=== PATIENT | female | born 1955 | race Caucasian/White ===

== ENCOUNTER 2019-02-06 18:07 | Inpatient (IN) | payer OTHER, MEDICAID ==
[~2019-02-06] VITALS: Ht 149.9 cm; Wt 65.8 kg
[2019-02-06 18:07] VITALS: BP 124/60
--- NOTE | 2019-02-06 18:07 | NUR ---
ricardo from [facility] to bed
--- NOTE | 2019-02-06 18:07 | NUR ---
63/F biba from [facility] for abnormal labs, hgb 6.9, hct 22, +occult blood. Denies vomiting blood, obvious blood in stool or signs of bleeding. Pt awake and alert, skin normal color warm and dry, rr even and unlabored. hx cva (r sided weakness), cad with angioplasty, anemia, hld, dysphagia
[2019-02-06 19:10] LABS: BASOPHILS # (AUTO) 0.1 K/uL (0.00-0.22); BASOPHILS % (AUTO) 0.6 % (0.0-2.0); EOSINOPHILS # (AUTO) 0.2 K/uL (0-0.4); EOSINOPHILS % (AUTO) 1.8 % (0.0-4.0); HEMATOCRIT 22.7 % (36-48); HEMOGLOBIN 7.4 g/dL (12.0-16.0); LYMPHOCYTES # (AUTO) 1.3 K/uL (2.5-16.5); MEAN CORPUSCULAR HEMOGLOBIN 30 pg (27-31); MEAN CORPUSCULAR HGB CONC 33 g/dL (33-37); MEAN CORPUSCULAR VOLUME 91.3 fL (80-94); MONOCYTES # (AUTO) 0.9 K/uL (0.8-1.0); MONOCYTES % (AUTO) 9.5 % (1.7-9.3); NEUTROPHILS # (AUTO) 7.3 K/uL (1.8-7.7); NEUTROPHILS % (AUTO) 75.1 % (42.2-75.2); PLATELET COUNT (AUTO) 293 K/uL (140-450); RED BLOOD CELL COUNT(AUTO) 2.49 MIL/uL (4.20-5.40); RED CELL DISTRIBUTION WIDTH 14.5 % (11.6-13.7); WHITE BLOOD COUNT (AUTO) 9.8 K/uL (4.8-10.8)
--- NOTE | 2019-02-06 19:15 | NUR ---
RECEIVED BEDSIDE REPORT BY TAQUERIA WOLFE
--- NOTE | 2019-02-06 19:16 | NUR ---
PT LAYING IN BED. FAMILY AT BEDSIDE. EVEN UNLABORED BREATHING. WILL CONTINUE TO MONITOR
[2019-02-06 19:24] LABS: ANION GAP 14.1 (8-16); CARBON DIOXIDE 20.4 mmol/L (21-32); CREATININE 1.4 mg/dL (0.6-1.3); POTASSIUM 4.5 mmol/L (3.5-5.1)
[2019-02-06 19:33] LABS: ALBUMIN 2.4 g/dL (3.4-5.0); PROTHROMBIN TIME 9.6 secs (10.8-13.4); TOTAL BILIRUBIN 0.3 mg/dL (0.0-1.0)
[2019-02-06 20:11] LABS: APPEARANCE,URINE CLOUDY (CLEAR); BILIRUBIN,URINE NEGATIVE (NEGATIVE); BLOOD, URINE NEGATIVE (NEGATIVE); COLOR,URINE YELLOW (YELLOW); LEUKOCYTE ESTERASE ,URINE 1+ (NEGATIVE); NITRITE, URINE NEGATIVE (NEGATIVE); PH,URINE 5.5 (5.0-9.0); UGLUCOSE NEGATIVE (NEGATIVE)
[2019-02-06 20:20] LABS: RBC,URINE NONE SEEN /HPF (0-5)
[2019-02-06] MEDS ORDERED: NACL 0.9% 1,000 ML IV ONE (21:55)
[2019-02-06] MEDS ORDERED: cefTRIAXone 1,000 MG VIAL ONE (22:15)
--- NOTE | 2019-02-06 22:45 | NUR ---
PT LAYING IN BED. NO SIGNS OF DISTRESS NOTED. WILL CONTINUE TO MONITOR. FAMLY AT BEDSIDE
[2019-02-06] MEDS ORDERED: HYDROcodone/APAP 7.5/325 MG 1 TAB PO PRN (23:40)
[2019-02-06] MEDS ORDERED: ONDANSETRON 4 MG/2 ML VIAL IM/IVP PRN (23:40)
[2019-02-06] MEDS ORDERED: NACL 0.9% 1,000 ML IV SCH (23:40)
[2019-02-06] MEDS ORDERED: MORPHINE SULFATE 2 MG/ML SYR IVP PRN (23:40)
--- NOTE | 2019-02-06 23:52 | NUR ---
NS BOLUS FINISHED INFUSING. L HAND IV PATENT AND INTACT. NO SIGNS OF DISTRESS. WILL CONTINUE TO MONITOR.
[2019-02-07 00:09] LABS: BARBITURATE, URINE NEG. ng/ml (NEG <=200); BENZODIAZEPINE, URINE NEG. ng/mL (NEG <=200); CANNABINOID, URINE NEG. ng/mL (NEG <=50); COCAINE, URINE NEG. ng/mL (NEG <=300); OPIATE, URINE NEG. ng/mL (NEG <=2000); PHENCYCLIDINE SCREEN,URINE NEG. ng/mL (NEG <=25)
[2019-02-07 00:21] LABS: CHOL/HDL RATIO 2.3 (1-4.5); FREE T4 (FREE THYROXINE) 1.11 ng/dL (0.76-1.46); MAGNESIUM 1.8 mg/dL (1.8-2.4); PHOSPHORUS 4.1 mg/dL (2.5-4.9); THYROID STIMULATING HORMONE 1.82 uIU/mL (0.34-3.74)
--- NOTE | 2019-02-07 00:40 | NUR ---
Patient will be admitted to care of [facility]. Admited to ICU. Will go to BED 1. Belongings list completed. Report to ALYCIA SOLORIO.
--- NOTE | 2019-02-07 00:40 | NUR ---
ADMITTED THIS 63 YEAR OLD FEMALE PATIENT FROM ER PER MOLLY WITH THE ADMITTING DIAGNOSIS OF UTI AND ANEMIA, ACCOMPANIED BY ER NURSE AND PATIENT'S DAUGHTER. ASSISTED TO ICU 1; ADMISSION PROTOCOL/ASSESSMENT DONE. PATIENT IS AWAKE, ALERT AND ORIENTED ABLE TO MOVE LIMBS FREELY BUT WITH MILD RIGHT SIDED WEAKNESS NOTED. BREATHING EVEN AND UNLABORE, ON ROOM AIR. CARDIACSCOPE SHOWS ON SINUS RHYTHM HR89/MIN NO ARRHYTHMIAS SEEN. ABDOMEN SOFT, BOWEL SOUNDS HEARD AND CLAIMED BY THE PATIENT HERSELF, SHE HAS BLACKISH STOOL YESTERDAY. INCONTINENT OF URINE, USES DIAPER. SKIN IS INTACT.
[2019-02-07 01:00] VITALS: BP 145/70
[2019-02-07 04:00] VITALS: BP 115/64
[2019-02-07] MEDS ORDERED: SODIUM FERRIC GLUCONATE 125 MG in NACL 0.9% 100 ML IV SCH ×2 (04:55→08:00)
--- NOTE | 2019-02-07 05:20 | NUR ---
INCONTINENT OF URINE; DIAPER CHANGED.
[2019-02-07] MEDS: PANTOPRAZOLE 40 MG TABEC PO SCH (06:19)
[2019-02-07 06:25] LABS: BASOPHILS % (AUTO) 0.6 % (0.0-2.0); EOSINOPHILS # (AUTO) 0.3 K/uL (0-0.4); EOSINOPHILS % (AUTO) 3.1 % (0.0-4.0); HEMATOCRIT 21.3 % (36-48); HEMOGLOBIN 7.1 g/dL (12.0-16.0); LYMPHOCYTES # (AUTO) 1.4 K/uL (2.5-16.5); LYMPHOCYTES % (AUTO) 16.4 % (20.5-51.1); MEAN CORPUSCULAR HEMOGLOBIN 31 pg (27-31); MEAN CORPUSCULAR HGB CONC 33 g/dL (33-37); MEAN CORPUSCULAR VOLUME 91.9 fL (80-94); MONOCYTES # (AUTO) 0.9 K/uL (0.8-1.0); MONOCYTES % (AUTO) 10.6 % (1.7-9.3); NEUTROPHILS # (AUTO) 6.1 K/uL (1.8-7.7); NEUTROPHILS % (AUTO) 69.3 % (42.2-75.2); PLATELET COUNT (AUTO) 266 K/uL (140-450); RED BLOOD CELL COUNT(AUTO) 2.31 MIL/uL (4.20-5.40); RED CELL DISTRIBUTION WIDTH 14.7 % (11.6-13.7); WHITE BLOOD COUNT (AUTO) 8.8 K/uL (4.8-10.8)
--- NOTE | 2019-02-07 06:33 | NUR ---
TRANSFERRED TO TELE DEPARTMENT PER WHEELCHAIR IN ROOM 123A IN FAIR CONDITION.
[2019-02-07 06:55] LABS: ANION GAP 13.3 (8-16); CARBON DIOXIDE 21.4 mmol/L (21-32); CREATININE 1.3 mg/dL (0.6-1.3); POTASSIUM 3.7 mmol/L (3.5-5.1)
--- NOTE | 2019-02-07 07:20 | NUR ---
RECEIVED REPORT FROM RNSAUL, REGARDING THE PT, PT IS AWAKE AND LYING ON THE BED WITH SIDE RAILS UP AND CALL LIGHT WITHIN REACH, SAFETY AND FALL PRECAUTION INITIATED, PERIPHERAL LINES ON THE LEFT WRIST G. 22 WITH IVF NS INFUSING AT 60ML/HR AND ON THE RT ARM G.18 ON SALINE LOCK, PT DENIES PAIN AND NO SIGN OF DISTRESS NOTED, WILL MONITOR PT.
[2019-02-07 08:00] VITALS: BP 162/79
[2019-02-07] MEDS: CALCIUM CARB/VIT-D 500 MG/200 IU 1 TAB PO SCH ×2 (08:21→21:24)
[2019-02-07] MEDS: LACTOBACILLUS RHAMNOSUS GG 1 EACH CAP PO SCH (08:21)
[2019-02-07] MEDS: HYDROCHLOROTHIAZIDE 25 MG TAB PO SCH (08:21)
[2019-02-07] MEDS: hydrALAZINE 25 MG TAB PO SCH ×3 (08:22→17:27)
[2019-02-07] MEDS: ATORVASTATIN 80 MG TAB PO SCH (08:22)
[2019-02-07] MEDS: FERROUS SULFATE 325 MG TABEC PO SCH (08:22)
[2019-02-07] MEDS: DOCUSATE SODIUM 100 MG GELCAP PO SCH (08:23)
[2019-02-07] MEDS: NIFEdipine 90 MG TABER PO SCH (08:23)
[2019-02-07] MEDS: METOPROLOL SUCCINATE 50 MG TABER PO SCH (08:23)
--- NOTE | 2019-02-07 08:23 | NUR ---
PT IS AWAKE AND PARAMETER CHECKED, BP IS 163/75, PULSE IS 84, MANUALLY CHECKED. ORAL MEDICATIONS TAKEN, TOLERATED, NO SIGN OF DISTRESS NOTED AND WILL MONITOR PT.
--- NOTE | 2019-02-07 08:27 | NUR ---
PATIENT HAS BEEN SCREENED AND CATEGORIZED MODERATE NUTRITION RISK. PATIENT WILL BE SEEN WITHIN 3-5 DAYS OF ADMISSION. 02/09/19 02/11/[address]
[2019-02-07] MEDS ORDERED: hydrALAZINE 20 MG/ML VIAL IVP PRN (10:45)
[2019-02-07 12:00] VITALS: BP 150/73
--- NOTE | 2019-02-07 13:20 | NUR ---
PATIENT IS AWAKE, ALERT, AND VERBALLY RESPONSIVE. ABLE TO VERBALIZE NEEDS. CURRENTLY EATING LUNCH. DENIES SOB. DENIES PAIN. BP AT 146/71, HR 87, MEDICATIONS GIVEN ORDERED. TOLERATED WELL.
--- NOTE | 2019-02-07 15:43 | NUR ---
Ent Nurse Note: I called [facility] , admission coordinator was not available, I left voicemail message.
[2019-02-07 16:00] VITALS: BP 160/78
--- NOTE | 2019-02-07 16:43 | NUR ---
UTILIZED A SENIOR PROJECT CONTROLS SPECIALIST , CALIN #[id number] TO INFORM PT THAT A CONSENT NEEDS TO BE SIGNED FOR AN EGD, PT DENIES QUEWSTION FROM DR. GARCIA. PT SIGNED THE CONSENT AND DR. GARCIA MADE AWARE.
--- NOTE | 2019-02-07 16:51 | NUR ---
PT SIGNED CONSENT FOR EGD, WAS PLACED NPO EXCEPT MEDS, SIGN POSTED AND PT WAS MADE AWARE.
[2019-02-07] MEDS: SENNA 8.6 MG TAB PO SCH (17:00)
--- NOTE | 2019-02-07 17:27 | NUR ---
PT IS AWAKE AND DAUGHTER ON THE BEDSIDE, BP MEDICATION WAS GIVEN, WILL RE-ASSESS BP AND MONITOR PT.
[2019-02-07] MEDS: NACL 0.9% 1,000 ML IV SCH (17:45)
--- NOTE | 2019-02-07 19:30 | NUR ---
ENDORSED PT TO EMERGENCY DISPATCHER NURSEARIC, FOR CONTINUITY OF CARE.
[2019-02-07 20:10] VITALS: BP 142/69
--- NOTE | 2019-02-07 20:10 | NUR ---
SEEN PT AWAKE. FAMILY AT BEDSIDE. INITIAL ASSESSMENT DONE. VITAL SIGNS CHECKED. PT STATES SHE HAS A LITTLE BIT OF ABDOMINAL DISCOMFORT. INFORMED PT THAT SHE'S ON LAXATIVES FOR HER EGD IN AM. PT VERBALIZED UNDERSTANDING. IVF INFUSING WELL. CALL LIGHT W/IN REACH. SAFETY REINFORCED.
--- NOTE | 2019-02-07 21:20 | NUR ---
SEEN PT AWAKE. MEDICATIONS GIVEN ORDERED W/ TEACHINGS. PT VERBALIZED UNDERSTANDING. REMINDED PT THAT SHE'S NPO EXCEPT MEDICATIONS. PT AWARE. FAMILY AT BEDSIDE. WILL CONTINUE TO MONITOR.
[2019-02-07] MEDS: LACTULOSE 20 GM/30 ML UDC PO SCH (21:24)
--- NOTE | 2019-02-07 23:45 | NUR ---
SEEN PT AWAKE. VITAL SIGNS CHECKED. IVF INFUSING WELL. PT DENIES ANY DISCOMFORT. WILL CONTINUE TO MONITOR.
[2019-02-08] VITALS: BP 117/45
--- NOTE | 2019-02-08 00:30 | NUR ---
PT CALLED AND SAID SHE NEEDS TO BE CLEAN. PERICARE RENDERED. PT REPOSITIONED FOR COMFORT. INSTRUCTED TO CALL WHEN IN NEED. CALL LIGHT W/IN REACH. PT VERBALIZED UNDERSTANDING. WILL CONTINUE TO MONITOR.
--- NOTE | 2019-02-08 02:40 | NUR ---
SEEN PT AWAKE. PT DENIES ANY PAIN OR DISCOMFORT. IVF INFUSING WELL. CALL LIGHT W/IN REACH.
[2019-02-08 04:00] VITALS: BP 137/67
--- NOTE | 2019-02-08 04:00 | NUR ---
SEEN PT ASLEEP BUT EASILY AROUSABLE. VITAL SIGNS CHECKED. PT DENIES ANY PAIN. PT KEPT COMFORTABLE AND DENIES ANY NEEDS. SAFETY REINFORCED.
--- NOTE | 2019-02-08 06:00 | NUR ---
SEEN PT AWAKE ON BEDPAN. PT ONLY URINATED. PT DENIES BM THROUGHOUT THE SHIFT. PERICARE RENDERED. INFORMED PT THAT SHE'S NOT ON THE SCHEDULE YET BUT MD WILL JUST COME AND TAKE HER TO GI LAB. PT VERBALIZED UNDERSTANDING. PT DENIES ANY PAIN OR DISCOMFORT. IVF INFUSING WELL.
[2019-02-08] MEDS: PANTOPRAZOLE 40 MG TABEC PO SCH (06:07)
[2019-02-08 06:16] LABS: EOSINOPHILS # (AUTO) 0.1 K/uL (0-0.4); MEAN CORPUSCULAR VOLUME 91.5 fL (80-94); MONOCYTES # (AUTO) 0.7 K/uL (0.8-1.0); NEUTROPHILS # (AUTO) 5.6 K/uL (1.8-7.7)
[2019-02-08 06:33] LABS: CARBON DIOXIDE 19.2 mmol/L (21-32); CREATININE 1.2 mg/dL (0.6-1.3); POTASSIUM 4.2 mmol/L (3.5-5.1)
[2019-02-08 06:43] LABS: MAGNESIUM 1.5 mg/dL (1.8-2.4); PHOSPHORUS 4.5 mg/dL (2.5-4.9)
--- NOTE | 2019-02-08 06:44 | NUR ---
WILL ENDORSE CARE TO DAYSHIFT NURSE.
[2019-02-08 06:55] LABS: BASOPHILS % (AUTO) 0.6 % (0.0-2.0); EOSINOPHILS % (AUTO) 1.4 % (0.0-4.0); HEMATOCRIT 20.5 % (36-48); LYMPHOCYTES # (AUTO) 1.4 K/uL (2.5-16.5); LYMPHOCYTES % (AUTO) 17.6 % (20.5-51.1); MEAN CORPUSCULAR HEMOGLOBIN 30 pg (27-31); MEAN CORPUSCULAR HGB CONC 33 g/dL (33-37); MONOCYTES % (AUTO) 8.9 % (1.7-9.3); NEUTROPHILS % (AUTO) 71.5 % (42.2-75.2); PLATELET COUNT (AUTO) 272 K/uL (140-450); RED BLOOD CELL COUNT(AUTO) 2.24 MIL/uL (4.20-5.40); RED CELL DISTRIBUTION WIDTH 14.6 % (11.6-13.7); WHITE BLOOD COUNT (AUTO) 7.9 K/uL (4.8-10.8)
[2019-02-08 07:00] LABS: HEMOGLOBIN 6.7 g/dL (12.0-16.0)
--- NOTE | 2019-02-08 07:00 | NUR ---
FLORENTIN CHARGE NURSE RECEIVED H&H RESULT=6.8/20.3 AT 0705 [address] [place]. WILL AWAIT FOR CALL BACK. ENDORSE TO DAYSHIFT NURSE TO FOLLOW UP. AT 07, NO CALL BACK, PAGED AGAIN.
--- NOTE | 2019-02-08 07:20 | NUR ---
Received report from engineer rf deployment nurse. Pt sleeping in bed. No signs of distress noted. No C/O pain. Family be bedside. Call light in reach. [id number]
--- NOTE | 2019-02-08 07:45 | NUR ---
Called blood bank to f/u on PRBC. Per tech, blood is still unavailable at this time.
[2019-02-08 08:00] VITALS: BP 163/77
[2019-02-08] MEDS: CALCIUM CARB/VIT-D 500 MG/200 IU 1 TAB PO SCH ×2 (08:26→20:40)
[2019-02-08] MEDS: LACTOBACILLUS RHAMNOSUS GG 1 EACH CAP PO SCH (08:26)
[2019-02-08] MEDS: SENNA 8.6 MG TAB PO SCH ×3 (08:26→17:29)
[2019-02-08] MEDS: ATORVASTATIN 80 MG TAB PO SCH (08:27)
[2019-02-08] MEDS: METOPROLOL SUCCINATE 50 MG TABER PO SCH (08:27)
[2019-02-08] MEDS: HYDROCHLOROTHIAZIDE 25 MG TAB PO SCH (08:27)
[2019-02-08] MEDS: hydrALAZINE 25 MG TAB PO SCH ×3 (08:28→17:29)
[2019-02-08] MEDS: FERROUS SULFATE 325 MG TABEC PO SCH ×2 (08:28→17:29)
[2019-02-08] MEDS: DOCUSATE SODIUM 100 MG GELCAP PO SCH (08:28)
[2019-02-08] MEDS: LACTULOSE 20 GM/30 ML UDC PO SCH ×2 (08:28→20:40)
--- NOTE | 2019-02-08 08:45 | NUR ---
Blood transfusion consent obtained from [facility] via [facility] image scientistGonzalez # [id number]. Daughter by bedside. [id number]
[2019-02-08] MEDS: NIFEdipine 90 MG TABER PO SCH (09:46)
--- NOTE | 2019-02-08 10:00 | NUR ---
Pt in bed resting. No signs of distress. no c/O pain. Call light in reach.
[2019-02-08] MEDS: NACL 0.9% 1,000 ML IV SCH (10:10)
--- NOTE | 2019-02-08 10:49 | NUR ---
Manager Of Customer Billing Note: I was informed by both patient and patient's daughter Payal Julien, they would like to know if patient can fly to [place] upon discharge from [facility], instead of returning to [facility] . I explained to them I will relay their question to MD and request MD to speak with them. They verbalized understanding. I informed of my conversation with patient and Payal. Per , she will speak with them.
[2019-02-08 12:00] VITALS: BP 178/87
[2019-02-08] MEDS ORDERED: diphenhydrAMINE 50 MG/ML VIAL ONE (13:57)
[2019-02-08] MEDS ORDERED: MIDAZOLAM 2 MG/2 ML VIAL ONE (13:57)
[2019-02-08] MEDS ORDERED: fentaNYL 0.05 MG/ML VIAL ONE (13:57)
--- NOTE | 2019-02-08 14:00 | NUR ---
Pt left unit for EGD via hospital bed. Pt aoox4, no c/o discomfort, no signs of distress.
--- NOTE | 2019-02-08 14:40 | NUR ---
Pt came back from GI lab s/p EGD. Pt aoox4, verbally responsive, able to follow commands. Left wrist IV intact & asymptomatic with ongoing NS @ 60ml/h. Daughter at bedside. Call light within reach.
[2019-02-08] MEDS ORDERED: MIDAZOLAM 2 MG/2 ML VIAL IVP ONE (14:55)
[2019-02-08] MEDS ORDERED: fentaNYL 0.05 MG/ML VIAL IVP ONE (14:55)
[2019-02-08] MEDS: ACETAMINOPHEN 325 MG TAB PO SCH ×2 (14:56→18:49)
--- NOTE | 2019-02-08 15:25 | NUR ---
Started blood infusion, 1 unit. Pre medicated patient with tylenol and benadryl.
[2019-02-08 16:00] VITALS: BP 144/69
[2019-02-08] MEDS ORDERED: METO50TE2 PO (16:35)
[2019-02-08] MEDS ORDERED: HYDR-1098 PO (16:35)
[2019-02-08] MEDS ORDERED: TICA90TA PO (16:35)
[2019-02-08] MEDS ORDERED: LIP80 PO (16:35)
[2019-02-08] MEDS ORDERED: NIFE90TE4 PO (16:35)
[2019-02-08] MEDS ORDERED: PANT40EC PO (16:36)
--- NOTE | 2019-02-08 18:00 | NUR ---
Pt's IV line was leaking. Stopped blood transfusion. Inserted IV line to right hand, 22 G. Pt with no apparent transfusion reaction. Resumed blood transfusion.
[2019-02-08] MEDS ORDERED: FUROSEMIDE 20 MG TAB PO SCH (19:00)
--- NOTE | 2019-02-08 19:00 | NUR ---
RECEIVED BEDSIDE REPORT FROM DAY SHIFT NURSE. PATIENT IS AWAKE, ALERT, AND COOPERATIVE. PATIENT IS ALMOST DONE RECEIVING BLOOD. RESPIRATION EVEN UNLABORED ON ROOM AIR. NO DISTRESS NOTED. SKIN IS WARM AND DRY. IV PATENT AND INTACT. DENIES PAIN. FAMILY AT BEDSIDE. ALL SAFETY MEASURES IN PLACE. PLAN OF CARE WAS DISCUSSED. BED IS AT LOW POSITION. CALL LIGHT WITHIN REACH. WILL CONTINUE TO MONITOR.
--- NOTE | 2019-02-08 19:10 | NUR ---
Shift report given to detonator assembler nurse. Pt in bed resting.
[2019-02-08 20:00] VITALS: BP 135/62
[2019-02-08] MEDS ORDERED: MAG SULF 2000 MG/WATER PREMIX 50 ML IV SCH (20:00)
--- NOTE | 2019-02-08 20:00 | NUR ---
INITIAL ASSESSMENT DONE. VITALS WERE TAKEN. PATIENT IN STABLE CONDITION. NO DISTRESS NOTED. WILL CONTINUE TO MONITOR.
[2019-02-08 20:42] LABS: BASOPHILS # (AUTO) 0.1 K/uL (0.00-0.22); BASOPHILS % (AUTO) 0.8 % (0.0-2.0); EOSINOPHILS # (AUTO) 0.2 K/uL (0-0.4); EOSINOPHILS % (AUTO) 2.1 % (0.0-4.0); HEMATOCRIT 23.9 % (36-48); HEMOGLOBIN 7.8 g/dL (12.0-16.0); LYMPHOCYTES # (AUTO) 1.2 K/uL (2.5-16.5); LYMPHOCYTES % (AUTO) 15.8 % (20.5-51.1); MEAN CORPUSCULAR HEMOGLOBIN 30 pg (27-31); MEAN CORPUSCULAR HGB CONC 33 g/dL (33-37); MEAN CORPUSCULAR VOLUME 91.7 fL (80-94); MONOCYTES % (AUTO) 12.5 % (1.7-9.3); NEUTROPHILS # (AUTO) 5.3 K/uL (1.8-7.7); NEUTROPHILS % (AUTO) 68.8 % (42.2-75.2); PLATELET COUNT (AUTO) 264 K/uL (140-450); RED BLOOD CELL COUNT(AUTO) 2.61 MIL/uL (4.20-5.40); RED CELL DISTRIBUTION WIDTH 14.5 % (11.6-13.7); WHITE BLOOD COUNT (AUTO) 7.7 K/uL (4.8-10.8)
--- NOTE | 2019-02-08 21:00 | NUR ---
ALL SCHEDULED MEDS WERE GIVEN PER ORDER. NO ASE NOTED. WILL CONTINUE TO MONITOR
--- NOTE | 2019-02-08 22:30 | NUR ---
CHECKED ON PATIENT. PATIENT IN BED WATCHING TV. DAUGHTER AT BEDSIDE. NO DISTRESS NOTED. WILL CONTINUE TO MONITOR.
[2019-02-09] VITALS: BP 120/59
--- NOTE | 2019-02-09 00:10 | NUR ---
VITALS WERE TAKEN. PATIENT IN STABLE CONDITION. NO DISTRESS NOTED. WILL CONTINUE TO MONITOR.
--- NOTE | 2019-02-09 02:23 | NUR ---
CHECKED ON PATIENT. PATIENT SLEEPING RESPIRATION EVEN UNLABORED ON ROOM AIR. NO DISTRESS NOTED. WILL CONTINUE TO MONITOR.
[2019-02-09] MEDS: NACL 0.9% 1,000 ML IV SCH (02:50)
--- NOTE | 2019-02-09 04:00 | NUR ---
OFFERED PATIENT BEDPAN. PATIENT HAD A BOWEL MOVEMENT. WILL CONTINUE TO MONITOR.
[2019-02-09 06:51] LABS: BASOPHILS % (AUTO) 0.4 % (0.0-2.0); EOSINOPHILS # (AUTO) 0.3 K/uL (0-0.4); EOSINOPHILS % (AUTO) 2.7 % (0.0-4.0); HEMATOCRIT 26.2 % (36-48); HEMOGLOBIN 8.6 g/dL (12.0-16.0); LYMPHOCYTES # (AUTO) 0.8 K/uL (2.5-16.5); LYMPHOCYTES % (AUTO) 7.8 % (20.5-51.1); MEAN CORPUSCULAR HEMOGLOBIN 30 pg (27-31); MEAN CORPUSCULAR HGB CONC 33 g/dL (33-37); MEAN CORPUSCULAR VOLUME 91.9 fL (80-94); MONOCYTES # (AUTO) 0.7 K/uL (0.8-1.0); MONOCYTES % (AUTO) 6.5 % (1.7-9.3); NEUTROPHILS # (AUTO) 8.9 K/uL (1.8-7.7); NEUTROPHILS % (AUTO) 82.6 % (42.2-75.2); PLATELET COUNT (AUTO) 290 K/uL (140-450); RED BLOOD CELL COUNT(AUTO) 2.86 MIL/uL (4.20-5.40); RED CELL DISTRIBUTION WIDTH 14.3 % (11.6-13.7); WHITE BLOOD COUNT (AUTO) 10.8 K/uL (4.8-10.8)
[2019-02-09 07:23] LABS: ANION GAP 18.5 (8-16); CARBON DIOXIDE 17.4 mmol/L (21-32); CREATININE 1.3 mg/dL (0.6-1.3); MAGNESIUM 2.4 mg/dL (1.8-2.4); PHOSPHORUS 4.6 mg/dL (2.5-4.9); POTASSIUM 3.9 mmol/L (3.5-5.1)
--- NOTE | 2019-02-09 07:54 | NUR ---
ENDORSED PATIENT TO DAY SHIFT NURSE. PATIENT IN STABLE CONDITION.
--- NOTE | 2019-02-09 07:55 | NUR ---
RECEIVED BEDSIDE REPORT FROM SET UP MACHINIST NURSE. PATIENT IS AWAKE, ALERT AND ORIENTEDX4. NO SIGNS OF DISTRESS ON RA. SKIN IS INTACT. IV ON R HAND 22G INFUSING NS AT 60. CLEAN, DRY AND INTACT. AMBULATE W ASSIST, FALL RISK PROTOCOL IN PLACE. PATIENT INCONTINENT. ABLE TO MAKE NEEDS KNOWN. BED IN LOW POSITION. CALL LIGHT WITHIN REACH. DAUGHTER AT BEDSIDE. WILL CONTINUE TO MONITOR
[2019-02-09 08:00] VITALS: BP 161/85
[2019-02-09] MEDS: SENNA 8.6 MG TAB PO SCH ×2 (09:00→12:32)
[2019-02-09] MEDS: DOCUSATE SODIUM 100 MG GELCAP PO SCH (09:00)
[2019-02-09] MEDS: LACTULOSE 20 GM/30 ML UDC PO SCH (09:00)
[2019-02-09] MEDS: HYDROCHLOROTHIAZIDE 25 MG TAB PO SCH (09:15)
[2019-02-09] MEDS: CALCIUM CARB/VIT-D 500 MG/200 IU 1 TAB PO SCH (09:15)
[2019-02-09] MEDS: hydrALAZINE 25 MG TAB PO SCH ×2 (09:15→12:42)
[2019-02-09] MEDS: ATORVASTATIN 80 MG TAB PO SCH (09:15)
[2019-02-09] MEDS: FERROUS SULFATE 325 MG TABEC PO SCH ×2 (09:16→12:42)
[2019-02-09] MEDS: LACTOBACILLUS RHAMNOSUS GG 1 EACH CAP PO SCH (09:17)
[2019-02-09] MEDS: METOPROLOL SUCCINATE 50 MG TABER PO SCH (09:17)
[2019-02-09] MEDS: NIFEdipine 90 MG TABER PO SCH (09:18)
--- NOTE | 2019-02-09 09:22 | NUR ---
ADMINISTERED MEDS. PATIENT TOLERATED WELL. EDUCATED ON SIDE EFFECTS. REFUSED BM MEDICATIONS, PATIENT SAID SHE HAS DIARRHEA AT THIS TIME. WILL CONTINUE TO MONITOR THE PATIENT.
--- NOTE | 2019-02-09 11:13 | NUR ---
PATIENT LAYING IN BED. NO SIGNS OF DISTRESS. WILL CONTINUE TO MONITOR
--- NOTE | 2019-02-09 11:33 | NUR ---
DC PLANNING: CM FAXED CLINICAL PACKET TO [facility] @ [place] . SPOKE WITH CARSON (SPIKE MACHINE OPERATOR), CURRENTLY WILL BE REVIEWING CLINICAL PACKET. [facility] @ P REGARDING DC PLAN BACK TO SNF. PILAR PROVIDED CM TRANSPORTATION AUTH # [id number]. PILAR STATED SHE WILL BE FAXING [facility] AUTHORIZATION FOR THE SNF. PILAR WOULD LIKE TO ALSO BE CONTACTED WITH AMBULANCE BEING USED.
[2019-02-09 12:33] VITALS: BP 168/79
--- NOTE | 2019-02-09 12:43 | NUR ---
ADMINISTERED MEDS. TOLERATED WELL. EDUCATED ON SIDE EFFECTS. PATIENT REFUSED SENNA AT THIS TIME
--- NOTE | 2019-02-09 13:33 | NUR ---
patient laying in bed. no signs of distress
--- NOTE | 2019-02-09 14:46 | NUR ---
DC PLANNING: CM CONTACTED [facility] @ , SPOKE WITH CARSON (BAND RIPSAW OPERATOR). STATED ACCEPTING PATIENT BACK AND ROOM NUMBER IS 2 [phone]. CALL FOR REPORT P CM ATTEMPTED TO ARRANGE TRANSPORTATION WITH [facility] @ , SPOKE WITH JENNIFER STATED THEY ARE NOT ACCEPTING PATIENT INSURANCE EVEN WITH AUTHORIZATION. CM ATTEMPTED TO ARRANGE WITH [facility] @ , [facility] @ , [facility] , [facility] @ . HOWEVER, ALL THESE TRANSPORTATION STATED UNABLE TO ACCEPT DUE TO THEY CANNOT CROSS CRITICAL ACCESS HOSPITAL. THEY CAN ONLY SENIOR INFRASTRUCTURE ENGINEER AT [facility]. CM CONTACTED [facility] [employer] @ GET A [place] FOR TRANSPORTATION. IT IS $120.00 CM SPOKE WITH PATIENT AND PATIENT'S DAUGHTER AT BEDSIDE AND EXPLAINED REGARDING TRANSPORTATION ISSUE. PATIENT WAS WILLING TO PAY FOR THE TRANSPORTATION PRIVATE. Addendum: 02/09/19 at 1520 by Nikkie Crowder TRANSPORTATION HAS BEEN SETUP WITH [facility] @ SPOKE WITH RAHAT (DISPATCH). SENIOR INFRASTRUCTURE ENGINEER TIME IS AT 5PM. PATIENT IS PAYING PRIVATELY. PATIENT'S NURSE MADE AWARE.
--- NOTE | 2019-02-09 15:32 | NUR ---
GAVE TELEPHONE CONSENT TO PRIYANKA RN AT [phone]. GAVE CALL BACK NUMBER IN CASE THEY HAVE QUESTIONS
[2019-02-09 16:00] VITALS: BP 125/56
--- NOTE | 2019-02-09 16:00 | NUR ---
EDUCATED PATIENT AND DAUGHTER AT BEDSIDE ABOUT DISCHARGE PLANNING, EDUCATED ON DISEASE PROCESS, ABN S/SX, WHEN TO GO TO THE ER, EDUCATED ON MEDS, MED SHEET PLACED IN SNF PACKED, EDUCATED ON FOLLOW UP W [facility] WITHIN A WEEK, PNA AND FLU VACCINE UP TO DATE. PATIENT VERBALIZED UNDERSTANDING AND SIGNED ALL PAPERWORK. USED [employer] TO HELP W TRANSLATION FOR DAUGHTER. TRANSCRIPTION NAME IS PILAR TRANSCRIPTION NUMBER IS [id number]. ALL QUESTIONS ANSWERED AT THIS TIME. AWAITING TRANSPORTATION
--- NOTE | 2019-02-09 17:25 | NUR ---
PATIENT PICKED UP BY [facility] IN STABLE CONDITION. IV REMOVED, TIP INTACT. ID BANDS REMOVED. PATIENT LEFT IN STABLE CONDITION W TRANSPORT AND DAUGHTER TO [facility]
== END 2019-02-09 17:25 | DRG 689 ==
LOC: MED 18:07 → MIC 23:43 → MTU 02-07 06:35
PROVIDERS: ADMIT General Practice; ATTEND General Practice
PROC: 0DB68ZX Excision of Stomach, Via Natural or Artificial Opening Endoscopic, Diagnostic (ICD-10-PCS; 2019-02-08)
PROC: 30233N1 Transfusion of Nonautologous Red Blood Cells into Peripheral Vein, Percutaneous Approach (ICD-10-PCS; principal; 2019-02-08 14:00)
DX: N30.90 Cystitis, unspecified without hematuria (principal); N17.0 Acute kidney failure with tubular necrosis; I69.354 Hemiplegia and hemiparesis following cerebral infarction affecting left non-dominant side; K29.70 Gastritis, unspecified, without bleeding; D64.9 Anemia, unspecified; I10 Essential (primary) hypertension; I25.10 Atherosclerotic heart disease of native coronary artery without angina pectoris; R13.10 Dysphagia, unspecified; E78.5 Hyperlipidemia, unspecified; E83.42 Hypomagnesemia; Z95.5 Presence of coronary angioplasty implant and graft; Z88.8 Allergy status to other drugs, medicaments and biological substances
CPT/HCPCS: 36415; 71045; 80048; 80053; 80305; 81001; 83036; 83540; 83605; 83735; 83880; 84100; 84439; 84443; 84484; 85025; 85610; 85730; 86677; 86886; 86900; 86901; 86920; 87040; 87081; 87086; 93005; 96361; 96365; 97110; 97116; 97161-GP; 97530; 99285; J0360; J0696; J1200; J2250; J2916; J3010; J3475; J7030; J7060; P9016; Q0092; Q0163